=== PATIENT | female | born 1990 | race Caucasian/White ===

== ENCOUNTER 2016-07-14 09:13 | Emergency (ER) | payer BC ==
--- NOTE | 2016-07-14 11:04 | CT ---
INDICATION: Headache, left greater than right x1 week. CT HEAD WITHOUT CONTRAST: Serial contiguous 2.5 and 5-mm sections were obtained through the brain without contrast and revealed evidence of pansinusitis with thickening of the linings of the maxillary antra relatively minimally on the right, more severely on the left, and thickening of the linings of multiple ethmoidal air cells, as well as the sphenoidal air cells and frontal air cells. No gross air-fluid levels were identified, however. The mastoid air cells appear to be well aerated. No specific cranial abnormality was identified. No shift of midline structures, ventricular abnormalities, or abnormal areas of density were identified. No acute intracranial abnormality was seen - no bleeding site or hematoma was noted. IMPRESSION: 1. No acute intracranial abnormality. 2. Pansinusitis. Report was called to Dr. Jarrett at 1026 hours, 07/14/2016. [facility]
[2016-07-14 13:51] VITALS: BP 132/81
--- NOTE | 2016-07-16 15:17 | ER ---
DATE SEEN: 07/14/2016 TIME SEEN: The patient was seen at 0940 hours. CHIEF COMPLAINT: Headache, fullness.. HISTORY OF PRESENT ILLNESS: This is a pleasant 26-year-old woman, who had the onset on 07/09/2016, of headache, left side, 8/10 in intensity. She is using control Mirena, plus she is 1, para 1-0-0-1, has not had a menstrual period up to 3 years ago. Last headache she had was approximately a week ago. She has headaches at least once a week, not as extensive as this, but she woke this morning with a headache. No history of trauma, fever, exertion, excessive stressors, herpes, or dental problems, neck stiffness, fall, or hypertension. She wears contacts. Notes her vision is slightly blurry intermittently and she feels this is secondary to increased lacrimation. She is not exposed to pesticides, nor does her boyfriend work with pesticides. She describes the headache as horrible, 8/10 in intensity, today onset is 8 a.m. this morning. First onset of headaches in her life was at about 14 years of age. FAMILY HISTORY: Migraines in mother and maternal grandmother. She has 1 brother who is alive and well, does not have headaches. Mother , father ; both had hypertension. Along with this lacrimation, she has mild crusting of her eyes for the last 5 days. She wears contacts, but does not feel there is any contact abnormality. She also is concerned about the blood staining in the whites of her eyes on her left eye. She notes it is not difficult to get the contacts in and out. It is "just like drinking water," It is very easy her to do it. Headache started, it was worse last night, and she noted the headache was present on awakening this morning. No new medication. No dietary changes. She had mild nausea off and on today and felt slightly lightheaded. She has seasonal allergies and uses Claritin. MEDICATIONS: 1. Claritin 10 mg daily. 2. Omeprazole for GERD. 3. Mirena. 4. Norethindrone. 5. Citalopram for depression 40 mg daily. ALLERGIES: None. REVIEW OF SYSTEMS: HEENT: Without abnormality. No recent sinus infection, upper respiratory infection, or sore throat. She has mild sinus congestion. As noted above, slight blurring of vision. CARDIORESPIRATORY: Denies chest pain, shortness of breath, irregularity of heartbeat, lightheadedness, near syncope, cough, abdominal discomfort, diaphoresis, or pedal edema. GASTROINTESTINAL: Denies diarrhea, constipation, blood in the stool, black tarry stool, or change of bowels. : Denies frequency, urgency, or dysuria. She is a 1, para 1-0-0-1. GI: Weight 260 pounds. MUSCULOSKELETAL: Negative. NEURO: Negative. Denies seizures, head injuries, trauma, or compromise of muscle strength in upper and lower extremities. PHYSICAL EXAMINATION: VITAL SIGNS: Blood pressure 139/86, heart rate 92, respirations 20, oxygen saturation 93%. Height 1.63 meters, weight 119.748 kilos, BMI 45. HEENT: Pleasant woman, in mild distress. PERRLA intact. Mild shiners noted. Scleral hemorrhage noted on the left side. Contacts were taken out very easily. Fluorescein stain is negative. No uptake of this fluorescein stain in the eyes. Mild flattening of the optic cup on the right side. No evidence for optic cup on the right side. No evidence for optic cup on the left side. Venous pulsations noted. No retinal tear, no exudates noted, no hemorrhage noted. EOMs normal. Hearing is intact. Pharynx without abnormality. Has her own teeth. No tenderness, cervical adenopathy, thyromegaly, or masses in the neck. LUNGS: No tenderness. Lungs are clear to auscultation without rales, rhonchi, or wheezes. HEART: S1, S2. No murmur. Regular rate and rhythm. No tachycardia. ABDOMEN: Soft. No guarding. No abdominal discomfort. Bowel sounds normal. Increased abdominal girth. Nonpigmented striae noted. BACK: Without abnormality. No spinous process tenderness in the cervical, thoracic, or lumbar spine. No paraspinal muscle spasm. Straight leg raise is negative. Muscle strength in the upper and lower extremities normal. Deep tendon reflexes normal in the upper and lower extremities. Cranial nerves 2 through 12 intact. Oriented x3. DIAGNOSTIC STUDIES: CAT scan of the head was performed and demonstrates significant ethmoid sinus congestion, also left maxillary sinus opacification. No clear air-fluid level. Moderate left nasal turbinate swelling and congestion. ASSESSMENT: 1. The patient's headache is probably secondary to allergy-mediated process. Sinusitis, she has shiners, and maxillary sinus and also ethmoid sinusitis with turbinate swelling, left side greater than right. 2. There is no evidence for leukocytosis to suggest infection. White count is 8100, PMNs 78.5, lymphs 19, monos 6, and eosinophils 3. (The latter suggesting mild allergy process.) CRP is slightly elevated at 2.1 reflecting inflammatory process. 3. Obesity, premorbid obesity with a BMI of 43.3. 4. Depression. 5. Using Mirena successfully. 6. Mild gastroesophageal reflux disease, but she is noted to be asymptomatic. PLAN: Start prednisone, taper dose 10 mg t.i.d. for 3 days, 10 mg b.i.d. for 3 days, 10 mg daily for 3 days, and then down to 0.5 mg daily for 3 days and then 0.5 mg for every other day dosing. The patient is advised of the potential side effects, depression, gastritis, or muscle loss, and if she finds any mood changes with the prednisone, she can stop it. She also can stop it or decrease the dose more aggressively if she finds a great recovery early on with high doses of steroid. Follow up with doctor in a week. The patient is advised she will probably have recurrent intermittent sinus congestion, and perhaps if she feels these symptoms are significant and she has headaches on a weekly basis because of allergy, she should have allergy testing when she has been off the medicine for 6 or 7 weeks. /[id number] [address]YST[address]QUIN
== END 2016-07-14 11:35 | disposition home or self-care (01) ==
LOC: FB.ED 09:13
DX: J32.0 Chronic maxillary sinusitis (principal); J32.2 Chronic ethmoidal sinusitis; E66.9 Obesity, unspecified; Z68.41 Body mass index [BMI] 40.0-44.9, adult; F32.9 Major depressive disorder, single episode, unspecified; K21.9 Gastro-esophageal reflux disease without esophagitis
CPT/HCPCS: 36415; 70450; 85025; 86140; 99284

== ENCOUNTER 2021-05-12 18:23 | Emergency (ER) | payer BC ==
[2021-05-12] MEDS ORDERED: Sodium Chloride 0.9% 10 ML Syringe FLUSH PRN (18:43)
[2021-05-12] MEDS ORDERED: Metoclopramide 10 MG/2 ML SDV IVPUSH ONE (18:44)
[2021-05-12] MEDS ORDERED: Sodium Chloride 0.9% 1,000 ML IV SCH (18:45)
[2021-05-12] MEDS ORDERED: Pantoprazole 40 MG Vial IVPUSH ONE (19:45)
[2021-05-12] MEDS ORDERED: Potassium Chloride 20 MEQ Tab.ER PO ONE (19:45)
[2021-05-12 20:48] VITALS: BP 121/72; PULSE 65
== END 2021-05-12 20:48 | disposition home or self-care (01) ==
LOC: FB.ED 18:23
DX: K21.9 Gastro-esophageal reflux disease without esophagitis (principal); K22.4 Dyskinesia of esophagus; Z79.899 Other long term (current) drug therapy
CPT/HCPCS: 36415; 80053; 83690; 83735; 85025; 93005; 96374; 96375; 99284; A9270; C9113; J2765; J7030